=== PATIENT | female | born 1975 | race African-American/Black ===

== ENCOUNTER 2019-05-03 14:15 | Emergency (ER) | payer OTHER ==
[~2019-05-03] VITALS: Ht 165.1 cm; Wt 92.0 kg
[2019-05-03 14:25] VITALS: BP 139/90
== END 2019-05-03 16:00 | disposition left against medical advice (07) ==
LOC: ER 14:15
DX: R10.30 Lower abdominal pain, unspecified (principal); R11.0 Nausea; R19.7 Diarrhea, unspecified; Z53.21 Procedure and treatment not carried out due to patient leaving prior to being seen by health care provider